=== PATIENT | female | born 1975 | race Two or more races ===

== ENCOUNTER 2017-12-21 14:43 | Emergency (ER) | payer OTHER, SELFPAY ==
[~2017-12-21] VITALS: Ht 157.5 cm; Wt 77.1 kg
[~2017-12-21 14:43] MED LIST: NKM; NORCO 5-325 TA1 EACH ORAL
[2017-12-21 15:07] VITALS: BP 128/60
[2017-12-21] MEDS ORDERED: ACETAMINOPHEN500 M3 ORAL (15:09)
[2017-12-21] MEDS ORDERED: IBUPROFEN600 MG ORAL (15:09)
[2017-12-21 15:21] VITALS: BP 128/60
--- NOTE | 2017-12-21 16:05 | Emergency Room Report ---
History of Present Illness General Chief Complaint: Headache Source: Patient Present Illness HPI This is a 42-year-old female who presented after a headache. Patient reports hitting her head on a car A-frame approximately 5 days prior to arrival. The patient was having moderate pain. She denies any neck pain or weakness. She had not been vomiting. The patient denied any other locations of injury. Allergies: Coded Allergies: No Known Allergies (Unverified , 01/02/14) Patient History Past Medical History: see triage record Reviewed Nursing Documentation: PMH: Agreed; PSxH: Agreed Nursing Documentation-PMH Past Medical History: No Stated History Review of Systems All Other Systems: negative except mentioned in HPI Physical Exam Vital Signs Date Time Temp Pulse Resp B/P (MAP) Pulse Ox O2 Delivery O2 Flow Rate FiO2 12/21/17 14:57 97.9 65 20 122/59 100 Room Air 97.9 General Appearance: well appearing, no apparent distress, alert, GCS 15 Head: normocephalic, atraumatic ENT: hearing grossly normal, normal voice Neck: full range of motion, supple Respiratory: no respiratory distress, speaking full sentences Cardiovascular #1: normal inspection, regular rate, rhythm Musculoskeletal: no calf tenderness Neurologic: normal inspection, alert, oriented x3, responsive, normal gait Psychiatric: mood/affect normal Skin: no rash Medical Decision Making Diagnostic Impression: Primary Impression: minor head injury ER Course Patient presented for headache.Differential diagnoses included but was not limited to skull fracture, subarachnoid hemorrhage, meningitis, aneurysm, mass lesion, intracranial hemorrhage.Because of complexity of patient's case laboratory testing and imaging studies were ordered. The patient is advised to follow up with primary care doctor in 1-2 days. Patient is advised to return if any worsening condition or if any changes in status that are concerning. This report is dictated with [employer] infant nanny software which may occasionally lead to discrepancies related to use of this software. Last Vital Signs Date Time Temp Pulse Resp B/P (MAP) Pulse Ox O2 Delivery O2 Flow Rate FiO2 12/21/17 15:21 97.9 78 18 128/60 100 Room Air 208.2 Status: improved Disposition: HOME, SELF-CARE Condition: Stable Scripts Acetaminophen* (ACETAMINOPHEN EXTRA STRENGTH*) 500 Mg Tablet 500 MG ORAL Q8H PRN for Fever/Headache/Mild Pain, #30 TAB Prov: Hipolito Mccord 12/21/17 Ibuprofen* (MOTRIN*) 600 Mg Tablet 600 MG ORAL Q8H PRN for For Pain, #30 TAB 0 Refills Prov: Hipolito Mccord 12/21/17 Referrals: [facility],REFERRING (PCP) Patient Instructions: Head Injury, Adult Hipolito Mccord Dec 21, 2017 16:05
== END 2017-12-21 15:26 | disposition home or self-care (01) ==
LOC: EMR 15:20
DX: S09.8XXA Other specified injuries of head, initial encounter (principal); W22.8XXA Striking against or struck by other objects, initial encounter; Y92.9 Unspecified place or not applicable
CPT/HCPCS: 99284